=== PATIENT | female | born 1975 | race Asian ===

== ENCOUNTER → 2016-08-25 21:33 | Outpatient (CLI) | payer OTHER | END | disposition short-term general hospital (02) | LOC: AMB 21:33 | DX: Z04.71 Encounter for examination and observation following alleged adult physical abuse (principal) ==

== ENCOUNTER 2016-08-26 11:19 | Outpatient (CLI) | payer OTHER | END 2016-08-26 11:23 | disposition short-term general hospital (02) | LOC: AMB 11:19 | DX: M25.562 Pain in left knee (principal); M25.462 Effusion, left knee | CPT/HCPCS: A0425; A0429 ==

== ENCOUNTER 2016-08-26 11:23 | Emergency (ER) | payer OTHER ==
[~2016-08-26] VITALS: Ht 162.6 cm; Wt 99.8 kg
== END 2016-08-26 13:24 | disposition home or self-care (01) ==
LOC: ED 11:23
PROC: 2W3MX1Z Immobilization of Left Lower Extremity using Splint (ICD-10-PCS; principal; 2016-08-26)
DX: S83.92XA Sprain of unspecified site of left knee, initial encounter (principal); X50.1XXA Overexertion from prolonged static or awkward postures, initial encounter; Y92.098 Other place in other non-institutional residence as the place of occurrence of the external cause
CPT/HCPCS: 99283; J1885; L1830